=== PATIENT | female | born 1985 | race Caucasian/White ===

== ENCOUNTER 2021-04-21 10:32 | Outpatient (REF) | payer OTHER, SELFPAY ==
--- NOTE | 2021-04-21 09:55 | SKI_PTH ---
PATIENT: Eladia Ambriz LOC: [facility] U#:[id number] AGE/SX: 35/F ROOM: RE04/21/[address]: Saniya Becker : 1985 BED: DIS: 04/21/2021 SPEC #: [id number] RECD: 04/21/21 13:15 STATUS: SANJIV ARCHER #: [id number] MAIRA: 04/21/21 09:[address]: Saniya Becker DEPT: Surgical Specimen RECD BY: Tsering Molina Tissues: 1 - SKIN BIOPSY(SHAVE/PUNCH) Procedures: SKIN LEVEL 4 Comments: [id number]
== END 2021-04-21 10:33 | disposition home or self-care (01) ==
LOC: LBN 10:32
DX: N64.89 Other specified disorders of breast (principal); B37.89 Other sites of candidiasis
CPT/HCPCS: 88305

== ENCOUNTER 2022-09-16 15:38 | Outpatient (REF) | payer OTHER, SELFPAY ==
[2022-09-18 15:20] LABS: Chlamydia Result Negative (Negative); GC Result Negative (Negative)
== END 2022-09-16 15:39 | disposition home or self-care (01) ==
LOC: LBN 15:38
PROVIDERS: Visit Provider Obstetrics & Gynecology
DX: Z11.3 Encounter for screening for infections with a predominantly sexual mode of transmission (principal)
CPT/HCPCS: 87491; 87591

== ENCOUNTER 2024-01-30 10:19 | Outpatient (REF) | payer OTHER, SELFPAY ==
[2024-01-30 15:23] LABS: ALT 19 U/L (14-59); AST 16 U/L (15-37); Albumin 4.6 g/dL (3.4-5.0); Alkaline Phosphatase 45 U/L (46-116); Anion Gap 10.3 mmol/L (3-11); BUN 10 mg/dL (7-18); Bilirubin, Total 0.7 mg/dL (0.2-1.0); CO2 27.7 mmol/L (21.0-32.0); CREATININE 0.9 mg/dL (0.55-1.02); Calcium 9.7 mg/dL (8.5-10.1); Calculated LDL 132 mg/dL (<100); Chloride 101 mmol/L (98-107); Cholesterol 214 mg/dL (<200); Glucose 101 mg/dL (74-106); HDL Cholesterol 75 mg/dL (40-60); Potassium 5.7 mmol/L (3.5-5.1); Sodium 139 mmol/L (136-145); Total Protein 7.6 g/dL (6.4-8.2); Triglyceride 39 mg/dL (<150)
[2024-01-30 16:33] LABS: Vitamin D 25 Total 40.7 ng/mL (30-100)
== END 2024-01-30 10:20 | disposition home or self-care (01) ==
LOC: NCHCN 10:19
PROVIDERS: PCP Family Medicine; Visit Provider Family Medicine
DX: Z00.00 Encounter for general adult medical examination without abnormal findings (principal); Z13.220 Encounter for screening for lipoid disorders; Z13.21 Encounter for screening for nutritional disorder; Z13.228 Encounter for screening for other metabolic disorders
CPT/HCPCS: 80053; 80061; 82306

== ENCOUNTER 2024-02-05 10:24 | Outpatient (REF) | payer OTHER, SELFPAY ==
--- NOTE | 2024-02-05 09:45 | PAPFT_PTH ---
PATIENT: Eladia Ambriz LOC: [facility] U#:[id number] AGE/SX: 38/F ROOM: RE02/05/[address]: Macie Valverde : 1985 BED: DIS: 02/05/2024 SPEC #: [id number] RECD: 02/05/24 17:48 STATUS: SANJIV REJennifer #: [id number] MAIRA: 02/05/24 09:[address]: Macie Valverde DEPT: [facility] Cytology RECD BY: Tsering Molina Tissues: 1 - CX/ENDOCX FOR PAP SMEARS Procedures: PAP THIN PREP/UVM Screening HPV DNA PROBE Comments: [id number]
== END 2024-02-05 10:25 | disposition home or self-care (01) ==
LOC: NCHCN 10:24
PROVIDERS: PCP Family Medicine; Visit Provider Family Medicine
DX: Z12.4 Encounter for screening for malignant neoplasm of cervix (principal); Z11.51 Encounter for screening for human papillomavirus (HPV)
CPT/HCPCS: 88142; 87624